=== PATIENT | female | born 1945 | race Caucasian/White ===

== ENCOUNTER → 2020-08-24 | Outpatient (CLI) | payer MEDICARE | LOC: NM 08:55 | DX: R10.11 Right upper quadrant pain (principal) | CPT/HCPCS: 78226; A9537 ==

== ENCOUNTER → 2020-09-19 | Outpatient (CLI) | payer MEDICARE ==
[2020-09-19 15:26] LABS: BUN/CREATININE RATIO 18 (0-10)
== END ==
LOC: LAB 12:13
PROVIDERS: Internal Medicine Gastroenterology
DX: R10.11 Right upper quadrant pain (principal)
CPT/HCPCS: 36415; 80053; 81001; 82150; 83690; 85652

== ENCOUNTER → 2020-09-20 | Outpatient (CLI) | payer MEDICARE | LOC: CT 13:52 | DX: R10.11 Right upper quadrant pain (principal); I72.8 Aneurysm of other specified arteries; K56.41 Fecal impaction | CPT/HCPCS: 74160; Q9967 ==

== ENCOUNTER → 2021-12-20 | Outpatient (CLI) | payer MEDICARE ==
[2021-12-21 10:14] LABS: RPR Non Reactive (Non Reactive)
[2021-12-21 12:14] LABS: RHEUMATOID ARTHRITIS FACTOR <10.0 IU/mL (<14.0)
[2021-12-21 13:09] LABS: ANTI-DSDNA ANTIBODIES <1 IU/mL (0-9)
== END ==
LOC: LAB 13:05
PROVIDERS: Psychiatry & Neurology Neurology
DX: G56.03 Carpal tunnel syndrome, bilateral upper limbs (principal); R20.0 Anesthesia of skin; M79.641 Pain in right hand; M79.642 Pain in left hand; G62.9 Polyneuropathy, unspecified
CPT/HCPCS: 36415; 82607; 82746; 85652; 86038; 86225; 86255; 86431; 86592